=== PATIENT | male | born 1955 | race Caucasian/White ===

== ENCOUNTER 2021-06-06 08:53 | Emergency (ER) | payer OTHER ==
[~2021-06-06] VITALS: Ht 185.4 cm; Wt 136.0 kg
--- NOTE | 2021-06-06 09:26 | PHYS DOC ---
Past Medical History Past Medical History: COPD, Diabetes-Type II Smoking Status: Former Smoker General Adult EDM: Chief Complaint: SHORTNESS OF BREATH HPI: HPI: Patient is a 66 year old M who presents with SOB onset yesterday. Pt states his SOB continued to get worse and this morning he got very dizzy and almost had a syncopal episode. Pt reports chest pressure and diaphoresis. Pt states that prior to yesterday he was feeling fine. Denies cough, fever, increased leg swelling, or pain recently. Pt's brother is but had significant history of multiple blood clots and was diagnosed with a clotting disorder. Pt is unsure which clotting disorder. Review of Systems: Review of Systems: Constitutional: Denies fever or chills Eyes: Denies redness or eye pain HENT: Denies nasal congestion or sore throat Respiratory: Denies cough; Reports shortness of breath Cardiovascular: Denies leg swelling; Reports chest pain and diaphoresis GI: Denies abdominal pain, nausea, or vomiting : Denies dysuria or hematuria Musculoskeletal: Denies back pain or joint pain Integument: Denies rash or skin lesions Neurologic: Denies headache, focal weakness or sensory changes Complete systems were reviewed and found to be within normal limits, except as documented in this note. Heart Score: C/O Chest Pain: Yes HEART Score for Chest Pain: HEART Score for Chest Pain Response (Comments) Value History Moderately Suspicious [address] Depression 2 Age > 65 2 Risk Factors >3 Risk Factors or Hx CAD 2 Troponin < Normal Limit 0 Total 7 Risk Factors: Risk Factors: DM, Current or recent (<one month) smoker, HTN, HLP, family history of CAD, obesity. Risk Scores: Score 0 - 3: 2.5% MACE over next 6 weeks - Discharge Home Score 4 - 6: 20.3% MACE over next 6 weeks - Admit for Clinical Observation Score 7 - 10: 72.7% MACE over next 6 weeks - Early Invasive Strategies Current Medications: Current Medications Medications (Trade) Dose Ordered Sig/Jenifer Start Time Stop Time Status Last Admin Dose Admin Albuterol/ Ipratropium (Duoneb) 3 ml 1X ONCE 06/06/21 09:30 06/06/21 09:31 UNV Physical Exam: PE: Constitutional: Well developed, well nourished, mild distress, non-toxic appearance HENT: Normocephalic, atraumatic Eyes: PERRL, EOMI, conjunctiva normal, no discharge Neck: Normal range of motion, no tenderness, supple Lungs & Thorax: Moderate respiratory distress, tachypneic, expiratory wheezes bilaterally, equal chest rise and fall Abdomen: Soft, no tenderness Skin: Warm, dry, no erythema, no rash Back: No tenderness, no CVA tenderness Extremities: No tenderness, ROM intact, no edema Neurologic: Alert and oriented X 3, normal motor function, normal sensory function, no focal deficits noted Psychologic: Affect normal, judgment normal EKG: EKG: @0908 Sinus tachycardia at 106bpm, NO ST elevation, ST depression noted in II and V3-V6, LAFB and RBBB, QRS 148ms, QT/QTc 366/488ms Radiology/Procedures: Radiology/Procedures: PROCEDURE: CT ANGIOGRAPHY CHEST Study: CT CHEST WITH CONTRAST - PULMONARY ANGIOGRAM History: Respiratory distress, hypoxia Comparison: CT chest 10/14/2006 Technique: Helical CT of the chest performed after the administration of 100 mL Omnipaque 350 intravenous contrast and timed for angiographic evaluation of the pulmonary arteries per PE protocol. Coronal and sagittal 3D MIP reformations were obtained. One or more of the following individualized dose reduction techniques were utilized for this examination: 1. Automated exposure control 2. Adjustment of the mA and/or kV according to patient size 3. Use of iterative reconstruction technique. Findings: Pulmonary Arteries: Contrast bolus is adequate. There are bilateral acute pulmonary emboli including a thin saddle embolism and pulmonary emboli in the right left main pulmonary arteries extending into the segmental pulmonary arteries in all 5 lobes, and into some of the subsegmental pulmonary arteries. Overall large thrombus burden, greater on the right. There is evidence of right heart strain with flattening of the interventricular septum and enlarged right heart relative to the left. There is contrast reflux into the inferior vena cava. Heart/Systemic Vasculature: The heart is overall normal in size but there is relative enlargement of the right hilar relative to the left heart and flattening of the interventricular septum, as above. No pericardial effusion. The thoracic aorta is normal in caliber. Mediastinum: No mediastinal or hilar lymphadenopathy. Lungs: There is a calcified granuloma in the anterior right lower lobe with some a few surrounding tree-in-bud nodules, decreased from 2006. A 4 mm nodule in the superior segment of the left lower lobe abutting the fissure is unchanged from 2007 and requires no surveillance.. The lungs are otherwise clear. No pleural effusion or pneumothorax Neck/Axilla/Body Wall: No axillary lymphadenopathy. The visualized portion of thyroid gland is unremarkable. Upper Abdomen: There is a 2.4 cm simple cyst in the right hepatic lobe. Bones: No acute osseous abnormality. Miscellaneous: None. IMPRESSION: 1. Positive exam for acute pulmonary emboli. Large thrombus burden including a saddle pulmonary embolism, and emboli in the right and left main pulmonary arteries extending into the segmental pulmonary arteries of all 5 lobes, and into some subsegmental pulmonary arteries. This is greater on the right. 2. There is evidence of right heart strain, as described. FOR INTERNAL CODING PURPOSES Critical result: Findings discussed with CATHY BOWLES DO at 06/06/2021 10:45 AM. RESULT CODE: (C) 1. Electronically signed by: Hilary Gross MD (06/06/2021 10:54 AM) [id number] Course & Med Decision Making: Course & Med Decision Making Pertinent Labs and Imaging studies reviewed. (See chart for details) [] Dragon Disclaimer: Dragon Disclaimer: This electronic medical record was generated, in whole or in part, using a voice recognition dictation system. CATHY BOWLES DO Jun 06, 2021 09:26
[2021-06-06] MEDS ORDERED: IPRATRPIUM/ALBUTEROL 0.5/2.5MG 3 ML NEBU. NEB ONE (09:30)
[2021-06-06] MEDS ORDERED: IV NORMAL SALINE 1000ML BAG 1,000 ML IV ONE ×2 (09:30→09:45)
[2021-06-06] MEDS ORDERED: DEXAMETHASONE SOD PHOS 4 MG/ML VIAL IVP ONE (09:30)
[2021-06-06 09:32] LABS: BASO # 0.1 x10^3/uL (0.0-0.2); BASO % 1 % (0-3); EOS # 0.4 x10^3/uL (0.0-0.7); EOS % 3 % (0-3); LYMPH # 2.6 x10^3/uL (1.0-4.8); LYMPH % 19 % (24-48); MEAN CORPUSCULAR HEMOGLOBIN 28 pg (25-35); MEAN CORPUSCULAR HGB CONC 33 g/dL (31-37); MEAN CORPUSCULAR VOLUME 85 fL (79-100); MONO # 1.5 x10^3/uL (0.0-1.1); MONO % 11 % (0-9); NEUT # 9.4 x10^3/uL (1.8-7.7); NEUT % 67 % (31-73); PLATELET COUNT 211 x10^3/uL (140-400); RED BLOOD COUNT 5.29 x10^6/uL (4.30-5.70); RED CELL DISTRIBUTION WIDTH 14.5 % (11.5-14.5)
[2021-06-06 09:32] LABS: BASE EXCESS COOX 0 mmol/L (-3-3); HCO3 COOX 25 mmol/L (21-28); METHEMOGLOBIN 0.1 % (0.0-1.9); PCO2 COOX 42 mmHg (35-46); PO2 COOX 58 mmHg (65-108); SAT O2 COOX 90 % (92-99)
[2021-06-06 09:45] LABS: PROTHROMBIN TIME PATIENT 13.4 SEC (11.7-14.0)
[2021-06-06 09:52] LABS: CREATININE 1.2 mg/dL (0.7-1.3); GFR 60.8; POTASSIUM 3.8 mmol/L (3.5-5.1)
[2021-06-06 09:58] LABS: ALBUMIN 3.2 g/dL (3.4-5.0); ALBUMIN/GLOBULIN RATIO 0.7 (1.0-1.7); TOTAL BILIRUBIN 1.1 mg/dL (0.2-1.0)
[2021-06-06 10:05] LABS: INFLUENZA A PATIENT NEGATIVE (NEGATIVE); INFLUENZA B PATIENT NEGATIVE (NEGATIVE)
[2021-06-06] MEDS ORDERED: IOHEXOL 350 MG/ML 100 ML VIAL. IV ONE (10:15)
[2021-06-06] MEDS ORDERED: ASPIRIN ENTERIC COATED 325 MG TABLET.DR. PO ONE (10:15)
[2021-06-06] MEDS ORDERED: CONTRAST GIVEN. MC PRN (10:15)
--- NOTE | 2021-06-06 10:57 | RAD ---
Study: CT CHEST WITH CONTRAST - PULMONARY ANGIOGRAM History: Respiratory distress, hypoxia Comparison: CT chest 10/14/2006 Technique: Helical CT of the chest performed after the administration of 100 mL Omnipaque 350 intrav enous contrast and timed for angiographic evaluation of the pulmonary arteries per PE protocol. Coron al and sagittal 3D MIP reformations were obtained. One or more of the following individualized dose reduction techniques were utilized for this examinat ion: 1. Automated exposure control 2. Adjustment of the mA and/or kV according to patient size 3. Use of iterative reconstruction technique. Findings: Pulmonary Arteries: Contrast bolus is adequate. There are bilateral acute pulmonary emboli including a thin saddle embolism and pulmonary emboli in the right left main pulmonary arteries extending into the segmental pulmonary arteries in all 5 lobes, and into some of the subsegmental pulmonary arteries . Overall large thrombus burden, greater on the right. There is evidence of right heart strain with f lattening of the interventricular septum and enlarged right heart relative to the left. There is cont rast reflux into the inferior vena cava. Heart/Systemic Vasculature: The heart is overall normal in size but there is relative enlargement of the right hilar relative to the left heart and flattening of the interventricular septum, as above. N o pericardial effusion. The thoracic aorta is normal in caliber. Mediastinum: No mediastinal or hilar lymphadenopathy. Lungs: There is a calcified granuloma in the anterior right lower lobe with some a few surrounding tr ee-in-bud nodules, decreased from 2006. A 4 mm nodule in the superior segment of the left lower lobe abutting the fissure is unchanged from 2007 and requires no surveillance.. The lungs are otherwise cl ear. No pleural effusion or pneumothorax Neck/Axilla/Body Wall: No axillary lymphadenopathy. The visualized portion of thyroid gland is unrema rkable. Upper Abdomen: There is a 2.4 cm simple cyst in the right hepatic lobe. Bones: No acute osseous abnormality. Miscellaneous: None. IMPRESSION: 1. Positive exam for acute pulmonary emboli. Large thrombus burden including a saddle pulmonary embo lism, and emboli in the right and left main pulmonary arteries extending into the segmental pulmonary arteries of all 5 lobes, and into some subsegmental pulmonary arteries. This is greater on the right . 2. There is evidence of right heart strain, as described. FOR INTERNAL CODING PURPOSES Critical result: Findings discussed with CATHY BOWLES DO at 06/06/2021 10:45 AM. RESULT CODE: (C) 1. Electronically signed by: Hilary Gross MD (06/06/2021 10:54 AM) [id number]
[2021-06-06] MEDS ORDERED: HEPARIN for IV BOLUS 10,000 UNIT/10 ML VIAL. IV ONE (11:00)
[2021-06-06] MEDS ORDERED: HEPARIN 25,000UTS/250ML PREMIX 250 ML IV PRN (11:00)
[2021-06-06 12:06] LABS: BACTERIA,URINE 0 /HPF (0-FEW); RBC,URINE 0 /HPF (0-2); WBC,URINE RARE /HPF (0-4)
[2021-06-06] MEDS ORDERED: fentaNYL PF VIAL 100 MCG/2 ML VIAL IV ONE (12:30)
--- NOTE | 2021-06-06 12:35 | CARD ---
MR#: [id number] Date of Study: 06/06/2021 Ordering Physician: CATHY BOWLES, Referring Physician: CATHY BOWLES, Tech: Dash Padilla [facility] APPROVED REPORT EXAM: Two-dimensional and M-mode echocardiogram with Doppler and color Doppler. Other Information Quality : FairHR: 110bpm Rhythm : TachycardiaTechnically limited study due to body habitus and smoking. INDICATION Saddle Pulmonary Embolism RISK FACTORS Obesity Smoking 2D DIMENSIONS RVDd4.7 (2.9-3.5cm)Left Atrium(2D)4.3 (1.6-4.0cm) IVSd1.4 (0.7-1.1cm)Aortic Root(2D)3.4 (2.0-3.7cm) LVDd4.6 (3.9-5.9cm)LVOT Diameter1.9 (1.8-2.4cm) PWd1.4 (0.7-1.1cm)LVDs2.9 (2.5-4.0cm) FS (%) 34.2 %SV55.4 ml LVEF(%)63.3 (>50%) Pulmonary Valve PV Peak Fdxsscrm800.8cm/s Tricuspid Valve TR P. [id number]/sTR Peak Gr.46mmHg LEFT VENTRICLE The left ventricle is normal size. There is mild to moderate concentric left ventricular hypertrophy. The left ventricular systolic function is normal. The estimated ejection fraction is 55 to 60%. Ther e is a flattened septum consistent with right ventricle pressure overload. No left ventricle thrombus noted on this study. There is no ventricular septal defect visualized. There is no left ventricular aneurysm. There is no mass noted in the left ventricle. RIGHT VENTRICLE The right ventricle is mildly dilated. There is normal right ventricular wall thickness. Systolic fun ction is moderately reduced. ATRIA The left atrium size is normal. The right atrium is mildly dilated. The interatrial septum is intact with no evidence for an atrial septal defect or patent foramen ovale as noted on 2-D or Doppler imagi ng. AORTIC VALVE The aortic valve is normal in structure and function. Doppler and Color Flow revealed no significant aortic regurgitation. There is no significant aortic valvular stenosis. There is no aortic valvular v egetation. MITRAL VALVE The mitral valve is not well visualized. There is no evidence of mitral valve prolapse. There is no m itral valve stenosis. Doppler and Color Flow revealed no mitral valve regurgitation noted. TRICUSPID VALVE The tricuspid valve is normal in structure and function. Doppler and Color Flow revealed mild tricusp id regurgitation. There is no tricuspid valve prolapse or vegetation. There is no tricuspid valve [place] nosis. PULMONIC VALVE The pulmonary valve is normal in structure and function. Doppler and Color Flow revealed no pulmonic valvular regurgitation. There is no pulmonic valvular stenosis. GREAT VESSELS The aortic root is normal in size. The ascending aorta is normal in size. The pulmonary artery is nor mal. The IVC is not well seen. Difficult windows. PERICARDIAL EFFUSION There is no pleural effusion. There is no evidence of significant pericardial effusion. Critical Notification Critical Value: No <Conclusion> The left ventricular systolic function is normal. The estimated ejection fraction is 55 to 60%. There is a flattened septum consistent with right ventricle pressure overload. The right ventricle is mildly dilated. Mild tricuspid regurgitation. PAP 51 mmHg. There is no evidence of significant pericardial effusion. Signed by : Hardy Sebastian, Electronically Approved : 06/06/2021 12:35:21
[2021-06-06] MEDS ORDERED: fentaNYL PF VIAL 100 MCG/2 ML VIAL ONE (12:37)
[2021-06-06 14:17] VITALS: BP 166/67
--- NOTE | 2021-06-09 06:17 | EKG ---
[facility] [address] [place] [address] Test Date: 2021-06-06 Test Time: 09:08:39 Pat Name: NATTY WEINER Department: Room: Gender: M Fundraiser: : [id number] Requested By: CATHY BOWLES Order Number: [id number] Reading MD: Measurements Intervals [place] Rate: 106 P: 221 WV: 96 QRS: -88 QRSD: 148 T: 73 QT: 366 QTc: 488 Interpretive Statements SINUS TACHYCARDIA ABNORMAL LEFT AXIS DEVIATION LEFT ANTERIOR FASCICULAR BLOCK RIGHT BUNDLE BRANCH BLOCK BIFASCICULAR BLOCK RVH WITH REPOLARIZATION ABNORMALITY ABNORMAL ECG RI6.02 No previous ECG available for comparison
== END 2021-06-06 16:13 | disposition short-term general hospital (02) ==
LOC: ER 08:53
DX: R06.02 Shortness of breath (principal); R55 Syncope and collapse; Z20.822 Contact with and (suspected) exposure to COVID-19; R07.89 Other chest pain; J44.9 Chronic obstructive pulmonary disease, unspecified; E11.9 Type 2 diabetes mellitus without complications; Z87.891 Personal history of nicotine dependence; R00.0 Tachycardia, unspecified
CPT/HCPCS: 36415; 36600; 71275; 80053; 81001; 82553; 82805; 83605; 83690; 83735; 83880; 84484; 85025; 85610; 85730; 87040; 87428; 93005; 93306; 94640; 96361; 96365; 96375; 96376; 99285; J1100; J1644; J3010; J7030; Q9967; U0003; C8929